=== PATIENT | male | born 1965 | race American Indian/Alaskan Native ===

== ENCOUNTER 2016-10-04 21:39 | Emergency (ER) | payer MEDICAID ==
[2016-10-04 22:09] LABS: Basophils % (Auto) 0.6 % (0.0-1.8); Eosinophils % (Auto) 1.2 % (0.0-4.3); Hemoglobin 15.2 gm/dl (11.8-15.2); Mean Corpuscular HGB Conc 34 % (32-34); Mean Corpuscular Hemoglobin 33 pg (28-32); Mean Corpuscular Volume 97 fl (84-94); Platelet Count 147 K/mm3 (140-440); Red Blood Count 4.64 M/mm3 (3.65-5.03); Red Cell Distribution Width 13.2 % (13.2-15.2); White Blood Count 8.4 K/mm3 (4.5-11.0)
[2016-10-04 22:29] LABS: Alanine Aminotransferase 23 units/L (7-56); Albumin 4.3 g/dL (3.9-5); Albumin/Globulin Ratio 1.6 %; Alkaline Phosphatase 71 units/L (35-129); Anion Gap 20 mmol/L; Blood Urea Nitrogen 15 mg/dL (9-20); Calcium 9.7 mg/dL (8.4-10.2); Carbon Dioxide 23 mmol/L (22-30); Chloride 102.1 mmol/L (98-107); Glucose 99 mg/dL (75-100); Potassium 3.9 mmol/L (3.6-5.0); Sodium 141 mmol/L (137-145)
[2016-10-04 22:39] LABS: Bacteria,Urine 1+ /HPF (Negative); Bilirubin,Urine NEG (Negative); Blood,Urine NEG (Negative); Ketones,Urine TR mg/dL (Negative); Leukocyte Esterase,Urine LG (Negative); Mucus,Urine 3+ /HPF; Nitrite,Urine NEG (Negative); Protein,Urine <15 mg/dL mg/dL (Negative)
[2016-10-05] MEDS ORDERED: ZITHROMAX PO ONE (00:52)
[2016-10-05] MEDS ORDERED: MOTRIN PO ONE (00:52)
[2016-10-05] MEDS ORDERED: XYLOCAINE 1% MPF 5 mL INFILTRATI ONE (00:52)
[2016-10-05] MEDS ORDERED: ROCEPHIN IM ONE (00:52)
--- NOTE | 2016-10-05 00:53 | Emergency Department Report ---
ED Male HPI - General Chief complaint: Urogenital-Male Stated complaint: BURNING IN URINATION/DISCHARGE Time Seen by Provider: 10/05/16 00:23 Source: patient Mode of arrival: Ambulatory Limitations: No Limitations - History of Present Illness Initial comments: 51-year-old male past medical history none presents with complaint of 4 days of penile discharge and dysuria. Patient denies abdominal pain nausea or vomiting denies any fevers or chills. Denies any testicular pain or scrotal pain. Primarily complaining of yellowish greenish discharge penis and burning sensation with urination. Patient states he has had unprotected sex within the last few months with multiple partners. MD Complaint: penile discharge, dysuria Onset/Timin -: days(s) Location: penis Severity: moderate Quality: burning Consistency: intermittent Worsens with: urination - Related Data Home Medications Medication Instructions Recorded Confirmed Last Taken Olanzapine [ZyPREXA] 30 mg PO QHS 12/14/15 12/14/15 Unknown diphenhydrAMINE [Benadryl CAP] 50 mg PO QHS 12/14/15 12/14/15 Unknown Previous Rx's Medication Instructions Recorded Last Taken Type HYDROcodone/APAP 7.5-325 [[place] 1 each PO Q8HR PRN #10 tablet 12/14/15 Unknown Rx 7.5-325 mg TAB] metroNIDAZOLE [Flagyl] 500 mg PO Q12HR #14 tab 10/05/16 Unknown Rx Allergies Allergy/AdvReac Type Severity Reaction Status Date / Time No Known Allergies Allergy Unverified 12/14/15 15:52 ED Review of Systems ROS: Stated complaint: BURNING IN URINATION/DISCHARGE Other details as noted in HPI Constitutional: denies: chills, fever Eyes: denies: eye pain, eye discharge, vision change ENT: denies: ear pain, throat pain Respiratory: denies: cough, shortness of breath, wheezing Cardiovascular: denies: chest pain, palpitations Endocrine: no symptoms reported Gastrointestinal: denies: abdominal pain, nausea, diarrhea Genitourinary: discharge (yellowish penile discharge). denies: urgency, dysuria Musculoskeletal: denies: back pain, joint swelling, arthralgia Skin: denies: rash, lesions Neurological: denies: headache, weakness, paresthesias Psychiatric: denies: anxiety, depression Hematological/Lymphatic: denies: easy bleeding, easy bruising ED Past Medical Hx - Past Medical History Previous Medical History?: Yes Additional medical history: PTSD - Surgical History Past Surgical History?: No - Social History Smoking Status: Current Every Day Smoker Substance Use Type: Alcohol, Marijuana - Medications Home Medications: Home Medications Medication Instructions Recorded Confirmed Last Taken Type HYDROcodone/APAP 7.5-325 [[place] 1 each PO Q8HR PRN #10 tablet 12/14/15 Unknown Rx 7.5-325 mg TAB] Olanzapine [ZyPREXA] 30 mg PO QHS 12/14/15 12/14/15 Unknown History diphenhydrAMINE [Benadryl CAP] 50 mg PO QHS 12/14/15 12/14/15 Unknown History metroNIDAZOLE [Flagyl] 500 mg PO Q12HR #14 tab 10/05/16 Unknown Rx ED Physical Exam - General Limitations: No Limitations General appearance: alert, in no apparent distress - Head Head exam: Present: atraumatic, normocephalic - Eye Eye exam: Present: normal appearance, PERRL, EOMI - ENT ENT exam: Present: mucous membranes moist - Neck Neck exam: Present: normal inspection - Respiratory Respiratory exam: Present: normal lung sounds bilaterally. Absent: respiratory distress - Cardiovascular Cardiovascular Exam: Present: regular rate, normal rhythm. Absent: systolic murmur, diastolic murmur, rubs, gallop - GI/Abdominal GI/Abdominal exam: Present: soft, normal bowel sounds - Rectal Rectal exam: Present: deferred - exam: Present: urethral discharge (yellowish whitish urethral discharge) External exam: Present: normal external exam - Extremities Exam Extremities exam: Present: normal inspection - Back Exam Back exam: Present: normal inspection - Neurological Exam Neurological exam: Present: alert, oriented X3 - Psychiatric Psychiatric exam: Present: normal affect, normal mood - Skin Skin exam: Present: warm, dry, intact, normal color. Absent: rash ED Course Vital Signs 10/04/16 10/05/16 21:51 01:08 Temperature 98.5 F Pulse Rate 93 H 74 Respiratory 18 14 Rate Blood Pressure 116/75 Blood Pressure 131/92 [Right] O2 Sat by Pulse 99 97 Oximetry ED Medical Decision Making - Lab Data Result diagrams: 10/04/16 21:58 10/04/16 21:58 - Medical Decision Making A/P: Urethritis 1- empiric treatment for urethritis to cover chlamydia and gonorrhea with ceftriaxone and azithromycin 2- will add course of flagyl to cover fot trichomonal infection as discharge is slightly greenish=> possibly characteristic of trichomonal infection based on presentation. 3- f/u with PMD 4- I advised patient to return to the ED if he experiences fevers chills abdominal pain worsened symptoms despite use of antibiotics increase in discharge over the next week or any pain/swelling/involvement of the scrotum or testicles Critical care attestation.: If time is entered above; I have spent that time in minutes in the direct care of this critically ill patient, excluding procedure time. ED Disposition Clinical Impression: Urethritis Disposition: - TO HOME OR SELFCARE Is pt being admited?: No Does the pt Need Aspirin: No Condition: Stable Instructions: Nonspecific Urethritis in Men (ED) Prescriptions: metroNIDAZOLE [Flagyl] 500 mg PO Q12HR #14 tab Referrals: [facility] [Outside] - 3-5 Days [facility] [Outside] - 3-5 Days Forms: STI Treatment and Prevention Time of Disposition: 01:34
[2016-10-05 01:09] VITALS: BP 131/92
== END 2016-10-05 02:12 | disposition home or self-care (01) ==
LOC: ED 21:39
DX: N34.2 Other urethritis (principal); F43.10 Post-traumatic stress disorder, unspecified; F17.200 Nicotine dependence, unspecified, uncomplicated; F12.90 Cannabis use, unspecified, uncomplicated
CPT/HCPCS: 36415; 80053; 81001; 85025; 87591; 96372; 99283; J0696